=== PATIENT | female | born 1960 | race Caucasian/White ===

== ENCOUNTER → 2021-01-03 | Outpatient (CLI) | payer OTHER ==
[2021-01-03 12:04] LABS: HEMOGLOBIN 15.4 gm/dl (12.3-15.3); RED BLOOD COUNT 5.04 M/UL (4.00-5.10)
[2021-01-03 12:32] LABS: BUN/CREATININE RATIO 17 (0-10)
== END ==
LOC: MAMO 11:00
PROVIDERS: Internal Medicine
DX: Z12.31 Encounter for screening mammogram for malignant neoplasm of breast (principal); L40.50 Arthropathic psoriasis, unspecified; Z79.899 Other long term (current) drug therapy
CPT/HCPCS: 36415; 73130; 77063; 77067; 80053; 85025; 85652; 86140

== ENCOUNTER → 2021-03-31 | Outpatient (CLI) | payer OTHER ==
[~2021-03-31] VITALS: Ht 167.6 cm; Wt 81.6 kg
== END ==
LOC: OPSV 09:00
DX: L40.50 Arthropathic psoriasis, unspecified (principal); Z88.1 Allergy status to other antibiotic agents; Z88.2 Allergy status to sulfonamides; Z88.8 Allergy status to other drugs, medicaments and biological substances; M06.9 Rheumatoid arthritis, unspecified
CPT/HCPCS: 96365; J7050; Q5103

== ENCOUNTER → 2021-04-14 | Outpatient (CLI) | payer OTHER ==
[~2021-04-14] VITALS: Ht 167.6 cm; Wt 81.6 kg
== END ==
LOC: OPSV 11:59
DX: L40.50 Arthropathic psoriasis, unspecified (principal)
CPT/HCPCS: 96365; 96366; J7050; Q5103

== ENCOUNTER → 2021-05-19 | Outpatient (CLI) | payer OTHER ==
[~2021-05-19] VITALS: Ht 167.6 cm; Wt 81.6 kg
== END ==
LOC: OPSV 12:00
DX: L40.50 Arthropathic psoriasis, unspecified (principal)
CPT/HCPCS: 96365; 96366; J7050; Q5103

== ENCOUNTER → 2021-07-14 | Outpatient (CLI) | payer OTHER ==
[~2021-07-14] VITALS: Ht 165.1 cm; Wt 95.3 kg
== END ==
LOC: OPSV 11:50
DX: L40.50 Arthropathic psoriasis, unspecified (principal)
CPT/HCPCS: 96365; 96366; J7050; Q5103

== ENCOUNTER → 2021-09-08 | Outpatient (CLI) | payer OTHER ==
[~2021-09-08] VITALS: Ht 165.1 cm; Wt 81.2 kg
== END ==
LOC: OPSV 11:39
DX: L40.50 Arthropathic psoriasis, unspecified (principal)
CPT/HCPCS: J7050; Q5103

== ENCOUNTER → 2021-09-13 | Outpatient (CLI) | payer OTHER ==
[2021-09-13 10:07] LABS: HEMOGLOBIN 15.1 gm/dl (12.3-15.3); RED BLOOD COUNT 4.98 M/UL (4.00-5.10); WHITE BLOOD COUNT 4.4 K/UL (4.5-11.0)
[2021-09-14 07:10] LABS: ESTIM. AVG GLU (EAG) 137 mg/dL (.); HEMOGLOBIN A1C 6.4 % (4.8-5.6)
[2021-09-14 08:15] LABS: ALBUMIN 4.1 g/dL (3.8-4.8); ALKALINE PHOSPHATASE 92 IU/L (44-121); ALT (SGPT) 18 IU/L (0-32); AST (SGOT) 25 IU/L (0-40); BILIRUBIN, DIRECT 0.16 mg/dL (0.00-0.40); BILIRUBIN, TOTAL 0.4 mg/dL (0.0-1.2); BUN 14 mg/dL (8-27); BUN/CREATININE RATIO 16 (12-28); CALCIUM, SERUM 9.7 mg/dL (8.7-10.3); CARBON DIOXIDE, TOTAL 24 mmol/L (20-29); CHLORIDE, SERUM 103 mmol/L (96-106); CHOLESTEROL, TOTAL 171 mg/dL (100-199); CREATININE, SERUM 0.86 mg/dL (0.57-1.00); EGFR IF AFRICN AM 84 (>59); EGFR IF NONAFRICN AM 73 (>59); GLUCOSE, SERUM 96 mg/dL (65-99); HDL CHOLESTEROL 45 mg/dL (>39); LDL CHOLESTEROL CALC 104 mg/dL (0-99); LDL/HDL RATIO 2.3 ratio (0.0-3.2); POTASSIUM, SERUM 3.6 mmol/L (3.5-5.2); PROTEIN, TOTAL 6.3 g/dL (6.0-8.5); SODIUM, SERUM 141 mmol/L (134-144); T. CHOL/HDL RATIO 3.8 ratio (0.0-4.4); TRIGLYCERIDES 125 mg/dL (0-149)
== END ==
LOC: LAB 09:02
PROVIDERS: Internal Medicine
DX: E11.9 Type 2 diabetes mellitus without complications (principal)
CPT/HCPCS: 36415; 80048; 80061; 80076; 83036; 84443; 85025

== ENCOUNTER → 2021-11-03 | Outpatient (CLI) | payer OTHER | LOC: OPSV 10:39 | DX: L40.50 Arthropathic psoriasis, unspecified (principal) | CPT/HCPCS: 96365; 96366; J7050; Q5103 ==

== ENCOUNTER → 2022-04-04 | Outpatient (CLI) | payer OTHER ==
[2022-04-04 13:10] LABS: HEMOGLOBIN 14.8 gm/dl (12.3-15.3); RED BLOOD COUNT 4.82 M/UL (4.00-5.10); WHITE BLOOD COUNT 5.6 K/UL (4.5-11.0)
[2022-04-04 13:49] LABS: BUN/CREATININE RATIO 20 (0-10)
[2022-04-05 14:11] LABS: SJOGREN'S ANTI-SS-A <0.2 AI (0.0-0.9); SJOGREN'S ANTI-SS-B <0.2 AI (0.0-0.9)
[2022-04-06 19:12] LABS: QUANTIFERON MITOGEN VALUE >10.00 IU/mL (.); QUANTIFERON NIL VALUE 0.03 IU/mL (.); QUANTIFERON TB1 AG VALUE 0.02 IU/mL (.); QUANTIFERON TB2 AG VALUE 0.02 IU/mL (.); QUANTIFERON-TB GOLD PLUS Negative (Negative)
== END ==
LOC: MAMO 03-06 15:00
PROVIDERS: Dermatology
DX: Z12.31 Encounter for screening mammogram for malignant neoplasm of breast (principal)
CPT/HCPCS: 36415; 77063; 77067; 80053; 85027; 86038; 86140; 86235

== ENCOUNTER → 2022-05-12 | Outpatient (CLI) | payer OTHER ==
[2022-05-17 14:11] LABS: DSDNA CRITHIDIA LUCILIAE IFA Negative (Negative)
== END ==
LOC: LAB 11:22
PROVIDERS: Dermatology
DX: R53.83 Other fatigue (principal); R63.4 Abnormal weight loss; R53.81 Other malaise; F41.9 Anxiety disorder, unspecified; R79.9 Abnormal finding of blood chemistry, unspecified; M79.10 Myalgia, unspecified site; Z79.899 Other long term (current) drug therapy
CPT/HCPCS: 36415; 86038; 86255